=== PATIENT | female | born 1985 | race African-American/Black ===

== ENCOUNTER 2017-01-29 10:21 | Emergency (ER) | payer MEDICAID ==
[~2017-01-29] VITALS: Ht 172.7 cm; Wt 47.0 kg
[~2017-01-29 10:21] MED LIST: BENZTROPINE; COGENTIN; LITHIUM; SEROQUEL
[2017-01-29 15:35] VITALS: BP 124/78
[2017-01-29 16:45] LABS: CHLORIDE 109 mEq/L (98-107); HEMATOCRIT. 38.2 % (36.0-48.0); HEMOGLOBIN. 12.3 g/dL (12.0-16.0); MEAN CORPUSCULAR HEMOGLOBIN 25.7 pg (28.0-32.0); MEAN PLATELET VOLUME 10.1 fl (7.4-10.4); PLATELET 134 x1000/uL (130-400); RED BLOOD CELL COUNT 4.78 mill/uL (4.2-5.4); RED CELL DISTRIBUTION WIDTH 17.3 % (11.6-14.6)
[2017-01-29 16:51] LABS: CARBON DIOXIDE 25 mEq/L (21-32); ETHANOL BLOOD < 10 mg/dL
[2017-01-29 17:04] LABS: PLATELET ESTIMATE NORMAL
[2017-01-29 17:57] LABS: CLARITY URINE CLEAR (CLEAR); COLOR URINE YELLOW (YELLOW); GLUCOSE URINE NEGATIVE (NEGATIVE); KETONES URINE 1+ (NEGATIVE); LEUKOCYTE ESTERASE URINE NEGATIVE (NEGATIVE); NITRITE URINE NEGATIVE (NEGATIVE); OCCULT BLOOD URINE NEGATIVE (NEGATIVE); PROTEIN URINE NEGATIVE (NEGATIVE); SPECIFIC GRAVITY URINE 1.031 (1.005-1.030)
[2017-01-29 18:12] LABS: *AMPHETAMINES SCREEN URINE NEGATIVE (NEGATIVE); *BARBITURATES SCREEN URINE NEGATIVE (NEGATIVE); *BENZODIAZEPINES SCREEN URINE NEGATIVE (NEGATIVE); CANNABINOID URINE SCREEN NEGATIVE (NEGATIVE); METHADONE URINE SCREEN NEGATIVE (NEGATIVE); OPIATES URINE SCREEN NEGATIVE (NEGATIVE); PHENCYCLIDINE URINE SCREEN NEGATIVE (NEGATIVE)
[2017-01-29 18:13] LABS: *COCAINE SCREEN URINE PRESUMTIVE POSITIVE (NEGATIVE)
== END 2017-01-29 18:07 | disposition home or self-care (01) ==
LOC: ER 10:36
DX: R10.84 Generalized abdominal pain (principal); I10 Essential (primary) hypertension; J45.909 Unspecified asthma, uncomplicated; Z88.8 Allergy status to other drugs, medicaments and biological substances
CPT/HCPCS: 36415; 80048; 80305; 80307; 80329; 81003; 81025; 85025; 99284; G0482

== ENCOUNTER 2017-01-31 19:06 | Emergency (ER) | payer MEDICAID ==
[~2017-01-31] VITALS: Ht 170.2 cm; Wt 78.0 kg
[2017-01-31] MEDS ORDERED: MORPHINE SULFATE 10 MG/ML CPJ IM ONE (19:45)
[2017-01-31 20:29] LABS: HEMOGLOBIN. 11.4 g/dL (12.0-16.0); MEAN CORPUSCULAR HEMOGLOBIN 25.8 pg (28.0-32.0); MEAN CORPUSCULAR VOLUME 79.4 fL (81.0-99.0); MEAN PLATELET VOLUME 9.6 fl (7.4-10.4); PLATELET 158 x1000/uL (130-400); RED CELL DISTRIBUTION WIDTH 17.4 % (11.6-14.6)
[2017-01-31 20:38] LABS: CARBON DIOXIDE 26 mEq/L (21-32); CHLORIDE 106 mEq/L (98-107); ETHANOL BLOOD < 10 mg/dL
[2017-01-31 20:46] LABS: HCG SCREEN NEGATIVE
[2017-01-31 22:08] LABS: *AMPHETAMINES SCREEN URINE NEGATIVE (NEGATIVE); *BARBITURATES SCREEN URINE NEGATIVE (NEGATIVE); *BENZODIAZEPINES SCREEN URINE NEGATIVE (NEGATIVE); METHADONE URINE SCREEN NEGATIVE (NEGATIVE); OPIATES URINE SCREEN NEGATIVE (NEGATIVE); PHENCYCLIDINE URINE SCREEN NEGATIVE (NEGATIVE)
[2017-01-31 22:12] LABS: *COCAINE SCREEN URINE PRESUMTIVE POSITIVE (NEGATIVE); CANNABINOID URINE SCREEN PRESUMTIVE POSITIVE (NEGATIVE)
[2017-01-31 22:45] LABS: PLATELET ESTIMATE NORMAL
[2017-02-01 13:22] VITALS: BP 110/72
== END 2017-02-01 14:21 | disposition home or self-care (01) ==
LOC: ER 19:55
DX: S82.491A Other fracture of shaft of right fibula, initial encounter for closed fracture (principal); V03.90XA Pedestrian on foot injured in collision with car, pick-up truck or van, unspecified whether traffic or nontraffic accident, initial encounter; Y93.89 Activity, other specified; Y92.89 Other specified places as the place of occurrence of the external cause; R56.9 Unspecified convulsions; F99 Mental disorder, not otherwise specified
CPT/HCPCS: 29515; 36415; 70450; 71250; 72125; 73030; 73080; 73110; 73130; 73502; 73562; 73610; 73630; 80048; 80305; 80307; 80329; 84703; 85025; 96372; 99285; G0482; J2270